=== PATIENT | male | born 1985 | race African-American/Black ===

== ENCOUNTER 2017-12-25 15:50 | Emergency (ER) | payer BC ==
[~2017-12-25] VITALS: Ht 182.9 cm; Wt 106.6 kg
[2017-12-25 16:16] VITALS: BP_SYST 119
--- NOTE | 2017-12-25 16:55 | NUR ---
Pt to bed 7
--- NOTE | 2017-12-25 16:57 | NUR ---
Dr. Mantilla at bedside for evaluation
--- NOTE | 2017-12-25 17:00 | NUR ---
Patient to ER via triage with c/o dysuria, frequency, urgency, and retention x 6 days. Patient is awake, alert and oriented in no acute distress, vital signs stable, respirations even and unlabored, skin warm and dry to touch. Patient able to ambulate with slow, steady gait to room 7. Patient was able to provide urine sample on the way to his room. Patient has been seen and evaluated by Dr Mantilla. Will continue to observe and assess.
[2017-12-25 17:49] LABS: BILIRUBIN,URINE NEGATIVE (NEGATIVE); BLOOD, URINE NEGATIVE (NEGATIVE); CLARITY/URINE CLEAR (CLEAR); COLOR,URINE YELLOW (YELLOW); GLUCOSE,URINE NEGATIVE (NEGATIVE); KETONES,URINE TRACE (NEGATIVE); LEUKOCYTE ESTERASE ,URINE NEGATIVE (NEGATIVE); NITRITE, URINE NEGATIVE (NEGATIVE); PH,URINE 5.5 (5.0-8.0); PROTEIN URINE NEGATIVE (NEGATIVE); UROBILINOGEN,URINE 0.2 (0.2-1.0)
[2017-12-25 18:00] VITALS: BP_SYST 122
--- NOTE | 2017-12-25 18:00 | NUR ---
Patient given written and verbal discharge instructions and verbalizes understanding. ER MD discussed with patient the results and treatment provided. Patient in stable condition. ID arm band removed. Rx of Doxycycline given. Patient educated on pain management and to follow up with PMD. Pain Scale 0/10. Opportunity for questions provided and answered.
[2017-12-29 00:17] LABS: CHLAMYDIA TRACHOMATIS NAA Negative (Negative); NEISSERIA GONORRHOEAE NAA Negative (Negative)
== END 2017-12-25 18:00 | disposition home or self-care (01) ==
LOC: SED 15:50
DX: Z11.3 Encounter for screening for infections with a predominantly sexual mode of transmission (principal); N34.2 Other urethritis
CPT/HCPCS: 81003; 87491; 87591; 99284